=== PATIENT | male | born 1935 | race Caucasian/White ===

== ENCOUNTER 2022-08-28 14:36 | Inpatient (IN) | payer MEDICARE, OTHER ==
[~2022-08-28 14:36] MED LIST: Iopamidol 370 76% 100 ML VIAL ONE
[2022-08-28] MEDS ORDERED: Ondansetron PF 4 MG/2 ML Vial ONE (14:52)
[2022-08-28] MEDS ORDERED: Morphine 4 MG/ML VIAL ONE (14:52)
[2022-08-28 15:17] LABS: #Monocytes 0.9 10x3/uL (0.0-1.1); #Neutrophils 6.1 10x3/uL (1.5-8.4); %Basophils 0.3 % (0.0-2.0); %Monocytes 11.3 % (0.0-10.0); Hemoglobin 12.2 g/dL (13.5-17.5); Mean Corpuscular HGB CONC 36.6 g/dL (32.0-36.0); Mean Corpuscular Hemoglobin 33.5 pg (27.0-33.0); Mean Corpuscular Volume 91.5 fl (81.2-95.1); Mean Platelet Volume 8.8 fl (7.4-10.4); Platelet Count 142 10x3/uL (150-450); RBC Distribution Width 17.4 % (11.5-14.5); Red Blood Cell (RBC) Count 3.64 10x6/uL (4.32-5.72); White Blood Cell (WBC) Count 7.6 10x3/uL (3.5-10.5)
[2022-08-28] MEDS ORDERED: NOREPINEPHRINE 8 MG/250 ML-D5W 250 ML ONE (15:19)
[2022-08-28 15:27] LABS: ALT (SGPT) 25 U/L (8-55); AST (SGOT) 29 U/L (5-34); Albumin 3.1 g/dL (3.4-4.8); Alkaline Phosphatase 41 U/L (40-110); Anion Gap 14 mmol/L (10-20); BUN (Urea Nitrogen) 31 mg/dL (8.4-25.7); Bilirubin, Total 1.2 mg/dL (0.2-1.2); Calc. Creatinine Clearance 0 mL/min (70-130); Calcium 8.1 mg/dL (7.8-10.44); Carbon Dioxide 20 mmol/L (23-31); Chloride 99 mmol/L (98-107); Estimated GFR 42; Globulin 1.9 g/dL (2.4-3.5); Glucose 135 mg/dL (83-110); Lipase 14 U/L (8-78); Potassium 3.2 mmol/L (3.5-5.1); Sodium 130 mmol/L (136-145)
[2022-08-28 16:09] LABS: CKMB 9.6 ng/mL (0-6.6)
[2022-08-28] MEDS ORDERED: Aspirin Chewable 81 MG TAB ONE (17:41)
[2022-08-28] MEDS ORDERED: cefTRIAXone\\ROCEPHIN 2 GM VIAL ONE (17:41)
[2022-08-28 17:56] LABS: SARS-CoV-2 NAA Rapid Test Not Detected (NotDetected)
[2022-08-28] MEDS ORDERED: Acetaminophen 325 MG TAB PO PRN (17:56)
[2022-08-28] MEDS ORDERED: NOREPINEPHRINE 8 MG/250 ML-D5W 250 ML IVPB PRN (17:56)
[2022-08-28] MEDS ORDERED: Potassium Chloride 20 MEQ TAB PO SCH (18:30)
[2022-08-28 18:45] LABS: Troponin I 0.247 ng/mL (< 0.028)
[2022-08-28] MEDS: Lactated Ringer's 1,000 ML IV SCH (19:56)
[2022-08-28] MEDS: Gabapentin 300 MG CAP PO SCH ×2 (20:59→23:56)
[2022-08-28] MEDS: Aspirin Chewable 81 MG TAB PO SCH (21:00)
[2022-08-28] MEDS ORDERED: Famotidine/PF 20 mg/2ml Vial SLOW IVP SCH (21:00)
[2022-08-28] MEDS: Atorvastatin Calcium 40 MG TAB PO SCH (21:00)
[2022-08-28] MEDS: Donepezil HCl 5 MG TAB PO SCH (21:01)
[2022-08-28] MEDS: metroNIDAZOLE 500 MG in Premix Bag 1 BAG IVPB SCH (21:02)
[2022-08-28 22:45] LABS: Bilirubin Neg (Negative); Blood, Urine 10 (Negative); CAUTI Indications for Culture Immunosuppressed; Clarity Slightly Cloudy (Clear); Glucose, Urine (Dipstick) Normal (Negative); Ketone, Urine 50 mg/dL (Negative); Leukocyte 100 (Negative); Nitrite Negative (Negative); Protein, Urine (Dipstick) 30 mg/dl (Neg-Trace); Urobilinogen Normal mg/dL (Less than 2)
[2022-08-28 22:56] LABS: Urine Culture Reflex Yes Yes
[2022-08-28 22:58] LABS: RBC/HPF 0-3 HPF (0-3)
[2022-08-28 22:59] LABS: Bacteria/HPF 1+ HPF (None Seen); Squamous Epithelial 0-3 HPF (0-3)
[2022-08-28 23:08] LABS: Troponin I 0.248 ng/mL (< 0.028)
[2022-08-29] MEDS: metroNIDAZOLE 500 MG in Premix Bag 1 BAG IVPB SCH ×3 (03:12→19:52)
[2022-08-29 03:51] LABS: Anion Gap 11 mmol/L (10-20); BUN (Urea Nitrogen) 27 mg/dL (8.4-25.7); Calc. Creatinine Clearance 63 mL/min (70-130); Calcium 7.7 mg/dL (7.8-10.44); Carbon Dioxide 22 mmol/L (23-31); Chloride 102 mmol/L (98-107); Estimated GFR 58; Glucose 129 mg/dL (83-110); Potassium 3.2 mmol/L (3.5-5.1); Sodium 132 mmol/L (136-145)
[2022-08-29 03:57] LABS: Hemoglobin 11.5 g/dL (13.5-17.5); Mean Corpuscular HGB CONC 36.6 g/dL (32.0-36.0); Mean Corpuscular Hemoglobin 33.8 pg (27.0-33.0); Mean Corpuscular Volume 92.4 fl (81.2-95.1); Mean Platelet Volume 8.7 fl (7.4-10.4); Platelet Count 148 10x3/uL (150-450); White Blood Cell (WBC) Count 6.5 10x3/uL (3.5-10.5)
[2022-08-29 03:59] LABS: MDiff Complete? YES
[2022-08-29 04:50] LABS: Band 18 % (5-11); Lymphocytes 11 % (21-51); Monocytes 16 % (0-10); Neutrophil 54 % (42-75)
[2022-08-29 04:51] LABS: Platelet Morphology Comment Appears Decreased; RBC Morphology Normal
[2022-08-29] MEDS ORDERED: Potassium Chloride 20 MEQ in Premix Bag 1 BAG IVPB SCH (05:00)
[2022-08-29] MEDS: Lactated Ringer's 1,000 ML IV SCH ×2 (06:36→19:55)
[2022-08-29] MEDS ORDERED: Furosemide 40 MG TAB PO SCH (07:30)
[2022-08-29] MEDS: Gabapentin 300 MG CAP PO SCH ×5 (07:43→23:31)
[2022-08-29] MEDS: Enoxaparin Sodium 40 MG/0.4 ML SYRINGE SC SCH (07:44)
[2022-08-29] MEDS: Levothyroxine Sodium 75 MCG TAB PO SCH (07:44)
[2022-08-29] MEDS: Doxazosin 2 MG TAB PO SCH (07:45)
[2022-08-29] MEDS: LACTINEX 1 TAB PO SCH (07:45)
[2022-08-29] MEDS ORDERED: Lisinopril 10 MG TAB PO SCH (09:00)
[2022-08-29 10:06] LABS: Hemoglobin 11.9 g/dL (13.5-17.5); Mean Corpuscular HGB CONC 36.4 g/dL (32.0-36.0); Mean Corpuscular Hemoglobin 33.5 pg (27.0-33.0); Mean Corpuscular Volume 92.1 fl (81.2-95.1); Mean Platelet Volume 9.3 fl (7.4-10.4); Platelet Count 166 10x3/uL (150-450); RBC Distribution Width 18.1 % (11.5-14.5); Red Blood Cell (RBC) Count 3.55 10x6/uL (4.32-5.72); White Blood Cell (WBC) Count 5.7 10x3/uL (3.5-10.5)
[2022-08-29 10:15] LABS: MDiff Complete? YES
[2022-08-29] MEDS: Mag-Al Plus 1200 MG/1200 MG/120 MG/30 ML UDCUP PO PRN (11:07)
[2022-08-29 12:43] LABS: Eosinophils 2 % (0-10); Monocytes 14 % (0-10)
[2022-08-29 12:45] LABS: Lymphocytes 13 % (21-51); Neutrophil 71 % (42-75)
[2022-08-29 12:46] LABS: Platelet Morphology Comment Appears Adequate
[2022-08-29] MEDS: HYDROcodone/Acetaminophen 5/325 mg Tablet PO PRN ×2 (15:57→23:30)
[2022-08-29] MEDS: cefTRIAXone\\ROCEPHIN 2 GM in Sodium Chloride 0.9% 100 ML IVPB SCH (16:44)
[2022-08-29 17:12] LABS: Campy jejuni + coli by PCR Negative (Negative); STEC Shiga Toxin 1+2 Negative (Negative); Salmonella spp. by PCR Negative (Negative); Shigella spp + EIEC by PCR Negative (Negative)
[2022-08-29] MEDS: Aspirin Chewable 81 MG TAB PO SCH (20:06)
[2022-08-29] MEDS: Donepezil HCl 5 MG TAB PO SCH (20:06)
[2022-08-29] MEDS: Atorvastatin Calcium 40 MG TAB PO SCH (20:06)
[2022-08-30] MEDS: metroNIDAZOLE 500 MG in Premix Bag 1 BAG IVPB SCH ×3 (03:26→20:39)
[2022-08-30] MEDS: Levothyroxine Sodium 75 MCG TAB PO SCH (07:59)
[2022-08-30] MEDS: Enoxaparin Sodium 40 MG/0.4 ML SYRINGE SC SCH (07:59)
[2022-08-30] MEDS: Doxazosin 2 MG TAB PO SCH (08:02)
[2022-08-30] MEDS: LACTINEX 1 TAB PO SCH (08:02)
[2022-08-30] MEDS: Gabapentin 300 MG CAP PO SCH ×4 (08:03→20:41)
[2022-08-30] MEDS ORDERED: Potassium Chloride 20 MEQ TAB PO SCH (08:45)
[2022-08-30] MEDS: HYDROcodone/Acetaminophen 5/325 mg Tablet PO PRN ×3 (09:55→20:38)
[2022-08-30 10:05] LABS: #Eosinphils 0.2 10x3/uL (0.0-0.5); #Monocytes 0.7 10x3/uL (0.0-1.1); #Neutrophils 3.5 10x3/uL (1.5-8.4); %Basophils 0.6 % (0.0-2.0); %Eosinophils 3.4 % (0.0-6.0); %Lymphocytes 12.7 % (18.0-47.0); %Monocytes 13.1 % (0.0-10.0); %Neutrophils 69.8 % (40.0-75.0); Hemoglobin 11.3 g/dL (13.5-17.5); Mean Corpuscular HGB CONC 36.3 g/dL (32.0-36.0); Mean Corpuscular Hemoglobin 33.8 pg (27.0-33.0); Mean Corpuscular Volume 93.1 fl (81.2-95.1); Mean Platelet Volume 8.6 fl (7.4-10.4); Platelet Count 146 10x3/uL (150-450); RBC Distribution Width 18.6 % (11.5-14.5); Red Blood Cell (RBC) Count 3.34 10x6/uL (4.32-5.72)
[2022-08-30 10:20] LABS: Anion Gap 10 mmol/L (10-20); BUN (Urea Nitrogen) 17 mg/dL (8.4-25.7); Calc. Creatinine Clearance 92 mL/min (70-130); Calcium 7.8 mg/dL (7.8-10.44); Carbon Dioxide 23 mmol/L (23-31); Chloride 104 mmol/L (98-107); Estimated GFR 84; Glucose 118 mg/dL (83-110); Magnesium 1.8 mg/dL (1.6-2.6); Phosphorus 1.6 mg/dL (2.3-4.7); Potassium 3.2 mmol/L (3.5-5.1); Sodium 134 mmol/L (136-145)
[2022-08-30] MEDS: Lactated Ringer's 1,000 ML IV SCH (12:18)
[2022-08-30] MEDS ORDERED: Potassium Phosphate 15 MMOL in Sodium Chloride 0.9% 100 ML IVPB SCH (13:00)
[2022-08-30] MEDS: cefTRIAXone\\ROCEPHIN 2 GM in Sodium Chloride 0.9% 100 ML IVPB SCH (16:02)
[2022-08-30] MEDS: Atorvastatin Calcium 40 MG TAB PO SCH (20:40)
[2022-08-30] MEDS: Donepezil HCl 5 MG TAB PO SCH (20:41)
[2022-08-30] MEDS: Aspirin Chewable 81 MG TAB PO SCH (20:41)
[2022-08-31] MEDS: Lactated Ringer's 1,000 ML IV SCH ×2 (01:36→06:18)
[2022-08-31] MEDS: Gabapentin 300 MG CAP PO SCH ×5 (01:37→20:53)
[2022-08-31] MEDS: metroNIDAZOLE 500 MG in Premix Bag 1 BAG IVPB SCH ×3 (03:29→20:52)
[2022-08-31 06:11] LABS: Anion Gap 10 mmol/L (10-20); BUN (Urea Nitrogen) 11 mg/dL (8.4-25.7); Calc. Creatinine Clearance 105 mL/min (70-130); Calcium 7.7 mg/dL (7.8-10.44); Carbon Dioxide 22 mmol/L (23-31); Chloride 105 mmol/L (98-107); Estimated GFR 87; Glucose 102 mg/dL (83-110); Potassium 3.4 mmol/L (3.5-5.1); Sodium 134 mmol/L (136-145)
[2022-08-31] MEDS ORDERED: Potassium Chloride 20 MEQ TAB PO SCH (08:45)
[2022-08-31] MEDS ORDERED: Potassium Phosphate 15 MMOL in Sodium Chloride 0.9% 100 ML IVPB SCH (09:30)
[2022-08-31] MEDS: Enoxaparin Sodium 40 MG/0.4 ML SYRINGE SC SCH (09:45)
[2022-08-31] MEDS: Levothyroxine Sodium 75 MCG TAB PO SCH (09:45)
[2022-08-31] MEDS: Loperamide HCl 1 MG/7.5 ML UDCUP PO PRN (09:45)
[2022-08-31] MEDS: LACTINEX 1 TAB PO SCH (09:46)
[2022-08-31] MEDS: Doxazosin 2 MG TAB PO SCH (09:49)
[2022-08-31] MEDS: HYDROcodone/Acetaminophen 5/325 mg Tablet PO PRN ×3 (11:10→20:54)
[2022-08-31] MEDS ORDERED: Cholestyramine/Aspartame 4 gm Packet PO SCH (12:30)
[2022-08-31] MEDS: cefTRIAXone\\ROCEPHIN 2 GM in Sodium Chloride 0.9% 100 ML IVPB SCH (17:30)
[2022-08-31] MEDS: Lisinopril 20 MG TAB PO SCH (20:53)
[2022-08-31] MEDS: Donepezil HCl 5 MG TAB PO SCH (20:54)
[2022-08-31] MEDS: Aspirin Chewable 81 MG TAB PO SCH (20:54)
[2022-08-31] MEDS: Atorvastatin Calcium 40 MG TAB PO SCH (20:55)
[2022-09-01] MEDS: Gabapentin 300 MG CAP PO SCH ×5 (00:58→22:31)
[2022-09-01] MEDS: Cholestyramine/Aspartame 4 gm Packet PO SCH ×3 (00:58→23:32)
[2022-09-01] MEDS: metroNIDAZOLE 500 MG in Premix Bag 1 BAG IVPB SCH ×3 (03:31→19:33)
[2022-09-01] MEDS: Enoxaparin Sodium 40 MG/0.4 ML SYRINGE SC SCH (08:05)
[2022-09-01] MEDS: Lisinopril 20 MG TAB PO SCH ×2 (08:05→22:32)
[2022-09-01] MEDS: LACTINEX 1 TAB PO SCH (08:06)
[2022-09-01] MEDS: Levothyroxine Sodium 75 MCG TAB PO SCH (08:07)
[2022-09-01] MEDS: Doxazosin 2 MG TAB PO SCH (08:07)
[2022-09-01] MEDS: Furosemide 40 MG TAB PO SCH (08:07)
[2022-09-01] MEDS ORDERED: Iopamidol 300 61% 100 ML VIAL FS ONE (10:07)
[2022-09-01] MEDS: HYDROcodone/Acetaminophen 5/325 mg Tablet PO PRN (10:46)
[2022-09-01] MEDS: cefTRIAXone\\ROCEPHIN 2 GM in Sodium Chloride 0.9% 100 ML IVPB SCH (16:54)
[2022-09-01] MEDS: Mag-Al Plus 1200 MG/1200 MG/120 MG/30 ML UDCUP PO PRN (20:58)
[2022-09-01] MEDS: Aspirin Chewable 81 MG TAB PO SCH (22:32)
[2022-09-01] MEDS: Donepezil HCl 5 MG TAB PO SCH (22:32)
[2022-09-01] MEDS: Atorvastatin Calcium 40 MG TAB PO SCH (22:32)
[2022-09-02] MEDS: Gabapentin 300 MG CAP PO SCH ×5 (00:54→20:00)
[2022-09-02] MEDS: metroNIDAZOLE 500 MG in Premix Bag 1 BAG IVPB SCH ×3 (02:13→18:16)
[2022-09-02] MEDS: Loperamide HCl 1 MG/7.5 ML UDCUP PO PRN (03:22)
[2022-09-02 06:59] LABS: Hemoglobin 11.2 g/dL (13.5-17.5); Mean Corpuscular HGB CONC 35.6 g/dL (32.0-36.0); Mean Corpuscular Hemoglobin 33.6 pg (27.0-33.0); Mean Corpuscular Volume 94.6 fl (81.2-95.1); Mean Platelet Volume 8.9 fl (7.4-10.4); Platelet Count 169 10x3/uL (150-450); RBC Distribution Width 20.1 % (11.5-14.5); Red Blood Cell (RBC) Count 3.33 10x6/uL (4.32-5.72); White Blood Cell (WBC) Count 4.6 10x3/uL (3.5-10.5)
[2022-09-02 07:10] LABS: Anion Gap 9 mmol/L (10-20); BUN (Urea Nitrogen) 8 mg/dL (8.4-25.7); Calc. Creatinine Clearance 103 mL/min (70-130); Calcium 7.9 mg/dL (7.8-10.44); Carbon Dioxide 23 mmol/L (23-31); Chloride 106 mmol/L (98-107); Estimated GFR 85; Glucose 112 mg/dL (83-110); Potassium 3.3 mmol/L (3.5-5.1); Sodium 135 mmol/L (136-145)
[2022-09-02] MEDS ORDERED: Electrolyte Replacement Protocol 1 EACH FS SCH (08:00)
[2022-09-02] MEDS: Enoxaparin Sodium 40 MG/0.4 ML SYRINGE SC SCH (10:55)
[2022-09-02] MEDS: Levothyroxine Sodium 75 MCG TAB PO SCH (10:55)
[2022-09-02] MEDS: Lisinopril 20 MG TAB PO SCH (10:55)
[2022-09-02] MEDS: LACTINEX 1 TAB PO SCH (10:55)
[2022-09-02] MEDS: Furosemide 40 MG TAB PO SCH (10:55)
[2022-09-02] MEDS: HYDROcodone/Acetaminophen 5/325 mg Tablet PO PRN (11:03)
[2022-09-02] MEDS: Cholestyramine/Aspartame 4 gm Packet PO SCH (11:05)
[2022-09-02] MEDS: Doxazosin 2 MG TAB PO SCH (11:05)
[2022-09-02] MEDS: PHOS-NAK 1 PKT PACK PO SCH ×2 (11:14→17:42)
[2022-09-02] MEDS ORDERED: Magnesium 2 GM/50 ML(in water) 2 GM in Premix Bag 1 BAG IVPB SCH (12:00)
[2022-09-02] MEDS ORDERED: Potassium Chloride 20 MEQ TAB PO SCH (12:00)
[2022-09-02] MEDS ORDERED: Miconazole Nitrate Powder 2% 45 gm TOP SCH (13:30)
[2022-09-02 17:07] LABS: Potassium 2.5 mmol/L (3.5-5.1)
[2022-09-02] MEDS: Potassium Bicarbonate/Cit Ac 20 MEQ TAB PO SCH (17:38)
[2022-09-02] MEDS ORDERED: Potassium Chloride 20 MEQ TAB PO ONE (18:10)
[2022-09-02] MEDS ORDERED: Potassium Chloride 20 MEQ in Premix Bag 1 BAG IVPB SCH (18:15)
[2022-09-02] MEDS: cefTRIAXone\\ROCEPHIN 2 GM in Sodium Chloride 0.9% 100 ML IVPB SCH (18:16)
[2022-09-03] MEDS: Atorvastatin Calcium 40 MG TAB PO SCH ×2 (00:19→22:03)
[2022-09-03] MEDS: Lisinopril 20 MG TAB PO SCH ×3 (00:19→22:04)
[2022-09-03] MEDS: Donepezil HCl 5 MG TAB PO SCH ×2 (00:20→22:04)
[2022-09-03] MEDS: Aspirin Chewable 81 MG TAB PO SCH ×2 (00:20→22:04)
[2022-09-03] MEDS: Gabapentin 300 MG CAP PO SCH ×5 (00:20→22:03)
[2022-09-03] MEDS: Miconazole Nitrate Powder 2% 45 gm TOP SCH ×3 (00:27→21:00)
[2022-09-03] MEDS: Cholestyramine/Aspartame 4 gm Packet PO SCH ×3 (00:28→22:02)
[2022-09-03] MEDS: Potassium Bicarbonate/Cit Ac 20 MEQ TAB PO SCH (00:45)
[2022-09-03] MEDS ORDERED: Potassium Bicarbonate/Cit Ac 20 MEQ TAB PO SCH (00:45)
[2022-09-03] MEDS: HYDROcodone/Acetaminophen 5/325 mg Tablet PO PRN ×3 (00:46→22:08)
[2022-09-03] MEDS: metroNIDAZOLE 500 MG in Premix Bag 1 BAG IVPB SCH ×3 (03:28→18:38)
[2022-09-03 06:54] LABS: Hemoglobin 12.2 g/dL (13.5-17.5); Mean Corpuscular HGB CONC 35.1 g/dL (32.0-36.0); Mean Corpuscular Hemoglobin 34.1 pg (27.0-33.0); Mean Corpuscular Volume 97.2 fl (81.2-95.1); Platelet Count 202 10x3/uL (150-450); RBC Distribution Width 20.8 % (11.5-14.5); Red Blood Cell (RBC) Count 3.58 10x6/uL (4.32-5.72); White Blood Cell (WBC) Count 4.8 10x3/uL (3.5-10.5)
[2022-09-03 06:58] LABS: ALT (SGPT) 46 U/L (8-55); AST (SGOT) 50 U/L (5-34); Albumin 2.6 g/dL (3.4-4.8); Alkaline Phosphatase 43 U/L (40-110); Anion Gap 11 mmol/L (10-20); BUN (Urea Nitrogen) 8 mg/dL (8.4-25.7); Bilirubin, Total 0.5 mg/dL (0.2-1.2); Calc. Creatinine Clearance 98 mL/min (70-130); Calcium 8.1 mg/dL (7.8-10.44); Carbon Dioxide 25 mmol/L (23-31); Chloride 107 mmol/L (98-107); Estimated GFR 84; Globulin 2.2 g/dL (2.4-3.5); Glucose 109 mg/dL (83-110); Magnesium 2.1 mg/dL (1.6-2.6); Phosphorus 2.2 mg/dL (2.3-4.7); Protein, Total 4.8 g/dL (5.8-8.1); Sodium 139 mmol/L (136-145)
[2022-09-03 08:23] LABS: MDiff Complete? YES
[2022-09-03 08:32] LABS: Band 8 % (5-11); Eosinophils 6 % (0-10); Lymphocytes 29 % (21-51); Monocytes 19 % (0-10); Neutrophil 35 % (42-75); Reactive Lymphocytes 3 % (0-10)
[2022-09-03 08:34] LABS: Anisocytosis SLIGHT = 6-15 cells (100X) (0-5/hpf); Macrocytosis SLIGHT = 6-15 cells (100X) (0-5/hpf); Ovalocytes SLIGHT = 2-5 cells (100X) (0-1/hpf)
[2022-09-03 08:35] LABS: Burr Cells SLIGHT = 2-5 cells (100X) (0-1/hpf); Platelet Morphology Comment Appears Adequate
[2022-09-03] MEDS ORDERED: Terbinafine 250 MG TAB PO SCH ×2 (09:00→12:00)
[2022-09-03] MEDS: Furosemide 40 MG TAB PO SCH (09:06)
[2022-09-03] MEDS: LACTINEX 1 TAB PO SCH (09:06)
[2022-09-03] MEDS: Levothyroxine Sodium 75 MCG TAB PO SCH (09:06)
[2022-09-03] MEDS: Doxazosin 2 MG TAB PO SCH (09:07)
[2022-09-03] MEDS: Enoxaparin Sodium 40 MG/0.4 ML SYRINGE SC SCH (09:07)
[2022-09-03] MEDS: cefTRIAXone\\ROCEPHIN 2 GM in Sodium Chloride 0.9% 100 ML IVPB SCH (17:36)
[2022-09-04] MEDS: Gabapentin 300 MG CAP PO SCH ×6 (03:12→20:52)
[2022-09-04] MEDS: metroNIDAZOLE 500 MG in Premix Bag 1 BAG IVPB SCH ×3 (03:12→17:53)
[2022-09-04 05:54] LABS: ALT (SGPT) 40 U/L (8-55); AST (SGOT) 34 U/L (5-34); Albumin 2.4 g/dL (3.4-4.8); Alkaline Phosphatase 39 U/L (40-110); Anion Gap 12 mmol/L (10-20); BUN (Urea Nitrogen) 10 mg/dL (8.4-25.7); Bilirubin, Total 0.5 mg/dL (0.2-1.2); Calc. Creatinine Clearance 95 mL/min (70-130); Calcium 8.1 mg/dL (7.8-10.44); Carbon Dioxide 23 mmol/L (23-31); Chloride 108 mmol/L (98-107); Estimated GFR 83; Glucose 121 mg/dL (83-110); Potassium 3.7 mmol/L (3.5-5.1); Protein, Total 4.4 g/dL (5.8-8.1); Sodium 139 mmol/L (136-145)
[2022-09-04 06:15] LABS: #Eosinphils 0.3 10x3/uL (0.0-0.5); #Neutrophils 2.7 10x3/uL (1.5-8.4); %Basophils 0.6 % (0.0-2.0); %Eosinophils 6.7 % (0.0-6.0); %Lymphocytes 19.3 % (18.0-47.0); %Monocytes 18.9 % (0.0-10.0); %Neutrophils 53.9 % (40.0-75.0); Hemoglobin 11.6 g/dL (13.5-17.5); Mean Corpuscular HGB CONC 34.8 g/dL (32.0-36.0); Mean Corpuscular Hemoglobin 33.7 pg (27.0-33.0); Mean Corpuscular Volume 96.8 fl (81.2-95.1); Mean Platelet Volume 8.7 fl (7.4-10.4); Platelet Count 186 10x3/uL (150-450); Red Blood Cell (RBC) Count 3.44 10x6/uL (4.32-5.72); White Blood Cell (WBC) Count 5.1 10x3/uL (3.5-10.5)
[2022-09-04 06:21] LABS: MDiff Complete? YES
[2022-09-04 06:57] LABS: Band 7 % (5-11); Eosinophils 5 % (0-10); Lymphocytes 11 % (21-51); Monocytes 27 % (0-10); Neutrophil 49 % (42-75); Reactive Lymphocytes 1 % (0-10)
[2022-09-04 06:59] LABS: Anisocytosis SLIGHT = 6-15 cells (100X) (0-5/hpf); Macrocytosis SLIGHT = 6-15 cells (100X) (0-5/hpf); Platelet Morphology Comment Appears Adequate
[2022-09-04] MEDS: Cholestyramine/Aspartame 4 gm Packet PO SCH (08:40)
[2022-09-04] MEDS: Doxazosin 2 MG TAB PO SCH (08:42)
[2022-09-04] MEDS: Terbinafine 250 MG TAB PO SCH (08:42)
[2022-09-04] MEDS: Enoxaparin Sodium 40 MG/0.4 ML SYRINGE SC SCH (08:42)
[2022-09-04] MEDS: LACTINEX 1 TAB PO SCH (08:43)
[2022-09-04] MEDS: Furosemide 40 MG TAB PO SCH (08:43)
[2022-09-04] MEDS: Levothyroxine Sodium 75 MCG TAB PO SCH (08:43)
[2022-09-04] MEDS: Lisinopril 20 MG TAB PO SCH ×2 (08:43→21:00)
[2022-09-04] MEDS: Miconazole Nitrate Powder 2% 45 gm TOP SCH ×2 (08:44→22:00)
[2022-09-04] MEDS: cefTRIAXone\\ROCEPHIN 2 GM in Sodium Chloride 0.9% 100 ML IVPB SCH (16:30)
[2022-09-04] MEDS: HYDROcodone/Acetaminophen 5/325 mg Tablet PO PRN (18:13)
[2022-09-04] MEDS: Donepezil HCl 5 MG TAB PO SCH (20:54)
[2022-09-04] MEDS: Atorvastatin Calcium 40 MG TAB PO SCH (20:54)
[2022-09-04] MEDS: Aspirin Chewable 81 MG TAB PO SCH (20:59)
[2022-09-05 04:56] LABS: #Eosinphils 0.3 10x3/uL (0.0-0.5); #Monocytes 0.8 10x3/uL (0.0-1.1); #Neutrophils 3.3 10x3/uL (1.5-8.4); %Basophils 0.6 % (0.0-2.0); %Eosinophils 6.3 % (0.0-6.0); %Lymphocytes 13.3 % (18.0-47.0); %Monocytes 15.8 % (0.0-10.0); %Neutrophils 63.4 % (40.0-75.0); Hemoglobin 11.7 g/dL (13.5-17.5); Mean Corpuscular Hemoglobin 33.6 pg (27.0-33.0); Mean Platelet Volume 8.6 fl (7.4-10.4); Platelet Count 178 10x3/uL (150-450); RBC Distribution Width 21.2 % (11.5-14.5); Red Blood Cell (RBC) Count 3.48 10x6/uL (4.32-5.72); White Blood Cell (WBC) Count 5.1 10x3/uL (3.5-10.5)
[2022-09-05 04:57] LABS: MDiff Complete? YES
[2022-09-05 05:06] LABS: ALT (SGPT) 34 U/L (8-55); AST (SGOT) 30 U/L (5-34); Albumin 2.4 g/dL (3.4-4.8); Alkaline Phosphatase 37 U/L (40-110); Anion Gap 12 mmol/L (10-20); BUN (Urea Nitrogen) 11 mg/dL (8.4-25.7); Bilirubin, Total 0.6 mg/dL (0.2-1.2); Calc. Creatinine Clearance 99 mL/min (70-130); Calcium 8.1 mg/dL (7.8-10.44); Carbon Dioxide 21 mmol/L (23-31); Chloride 108 mmol/L (98-107); Estimated GFR 84; Globulin 2.2 g/dL (2.4-3.5); Glucose 111 mg/dL (83-110); Potassium 3.8 mmol/L (3.5-5.1); Protein, Total 4.6 g/dL (5.8-8.1); Sodium 137 mmol/L (136-145)
[2022-09-05] MEDS: Gabapentin 300 MG CAP PO SCH ×5 (05:42→20:12)
[2022-09-05 06:17] LABS: Band 2 % (5-11); Eosinophils 4 % (0-10); Lymphocytes 12 % (21-51); Monocytes 14 % (0-10); Neutrophil 68 % (42-75); Nucleated RBC 1 % (0)
[2022-09-05 06:18] LABS: Platelet Morphology Comment Appears Adequate; Polychromasia SLIGHT = 2-3 cells (100X) (0-2/hpf)
[2022-09-05] MEDS: Enoxaparin Sodium 40 MG/0.4 ML SYRINGE SC SCH ×2 (09:03→09:08)
[2022-09-05] MEDS: Cholestyramine/Aspartame 4 gm Packet PO SCH (09:03)
[2022-09-05] MEDS: Furosemide 40 MG TAB PO SCH (09:04)
[2022-09-05] MEDS: LACTINEX 1 TAB PO SCH (09:04)
[2022-09-05] MEDS: Lisinopril 20 MG TAB PO SCH ×2 (09:04→20:13)
[2022-09-05] MEDS: Ketoconazole 2% Cream 15 gm Tube TOP SCH (09:04)
[2022-09-05] MEDS: Levothyroxine Sodium 75 MCG TAB PO SCH (09:04)
[2022-09-05] MEDS: HYDROcodone/Acetaminophen 5/325 mg Tablet PO PRN (09:04)
[2022-09-05] MEDS: Doxazosin 2 MG TAB PO SCH (09:08)
[2022-09-05] MEDS: Miconazole Nitrate Powder 2% 45 gm TOP SCH ×2 (10:21→20:17)
[2022-09-05] MEDS: Terbinafine 250 MG TAB PO SCH (10:21)
[2022-09-05] MEDS: Mag-Al Plus 1200 MG/1200 MG/120 MG/30 ML UDCUP PO PRN (19:21)
[2022-09-05] MEDS: Donepezil HCl 5 MG TAB PO SCH (20:12)
[2022-09-05] MEDS: Atorvastatin Calcium 40 MG TAB PO SCH (20:13)
[2022-09-05] MEDS: Aspirin Chewable 81 MG TAB PO SCH (20:13)
[2022-09-06] MEDS: Gabapentin 300 MG CAP PO SCH ×5 (01:23→20:22)
[2022-09-06] MEDS: Enoxaparin Sodium 40 MG/0.4 ML SYRINGE SC SCH (09:06)
[2022-09-06] MEDS: Cholestyramine/Aspartame 4 gm Packet PO SCH (09:06)
[2022-09-06] MEDS: Furosemide 40 MG TAB PO SCH (09:06)
[2022-09-06] MEDS: Ketoconazole 2% Cream 15 gm Tube TOP SCH (09:06)
[2022-09-06] MEDS: Levothyroxine Sodium 75 MCG TAB PO SCH (09:07)
[2022-09-06] MEDS: LACTINEX 1 TAB PO SCH (09:07)
[2022-09-06] MEDS: Lisinopril 20 MG TAB PO SCH ×2 (09:07→20:29)
[2022-09-06] MEDS: Miconazole Nitrate Powder 2% 45 gm TOP SCH ×2 (09:09→20:24)
[2022-09-06] MEDS: Doxazosin 2 MG TAB PO SCH (09:12)
[2022-09-06] MEDS: Terbinafine 250 MG TAB PO SCH (09:12)
[2022-09-06] MEDS ORDERED: guaiFENesin ER 600 MG TAB PO SCH (11:00)
[2022-09-06 14:36] LABS: #Eosinphils 0.3 10x3/uL (0.0-0.5); #Monocytes 0.8 10x3/uL (0.0-1.1); #Neutrophils 6.4 10x3/uL (1.5-8.4); %Basophils 0.2 % (0.0-2.0); %Eosinophils 3.5 % (0.0-6.0); %Lymphocytes 7.2 % (18.0-47.0); %Monocytes 10.1 % (0.0-10.0); %Neutrophils 78.4 % (40.0-75.0); Hemoglobin 11.5 g/dL (13.5-17.5); Mean Corpuscular HGB CONC 35.1 g/dL (32.0-36.0); Mean Corpuscular Hemoglobin 33.7 pg (27.0-33.0); Mean Corpuscular Volume 96.2 fl (81.2-95.1); Mean Platelet Volume 8.6 fl (7.4-10.4); Platelet Count 183 10x3/uL (150-450); RBC Distribution Width 20.9 % (11.5-14.5); Red Blood Cell (RBC) Count 3.41 10x6/uL (4.32-5.72); White Blood Cell (WBC) Count 8.2 10x3/uL (3.5-10.5)
[2022-09-06 14:52] LABS: Anion Gap 11 mmol/L (10-20); BUN (Urea Nitrogen) 10 mg/dL (8.4-25.7); Calc. Creatinine Clearance 0 mL/min (70-130); Calcium 8.1 mg/dL (7.8-10.44); Carbon Dioxide 22 mmol/L (23-31); Chloride 106 mmol/L (98-107); Estimated GFR 84; Glucose 137 mg/dL (83-110); Potassium 3.4 mmol/L (3.5-5.1); Sodium 136 mmol/L (136-145)
[2022-09-06] MEDS ORDERED: Potassium Chloride 20 MEQ TAB PO SCH (20:00)
[2022-09-06] MEDS: guaiFENesin ER 600 MG TAB PO SCH (20:22)
[2022-09-06] MEDS: Donepezil HCl 5 MG TAB PO SCH (20:22)
[2022-09-06] MEDS: Atorvastatin Calcium 40 MG TAB PO SCH (20:23)
[2022-09-06] MEDS: Aspirin Chewable 81 MG TAB PO SCH (20:23)
[2022-09-07] MEDS: Gabapentin 300 MG CAP PO SCH ×3 (01:03→14:21)
[2022-09-07 05:13] LABS: Potassium 3.7 mmol/L (3.5-5.1)
[2022-09-07] MEDS ORDERED: Fluticasone Propionate Nasal Spray 16 gm Bottle NASAL SCH (09:00)
[2022-09-07] MEDS: Furosemide 40 MG TAB PO SCH (09:34)
[2022-09-07] MEDS: guaiFENesin ER 600 MG TAB PO SCH (09:34)
[2022-09-07] MEDS: Lisinopril 20 MG TAB PO SCH (09:35)
[2022-09-07] MEDS: Ketoconazole 2% Cream 15 gm Tube TOP SCH (09:35)
[2022-09-07] MEDS: LACTINEX 1 TAB PO SCH ×2 (09:35→09:36)
[2022-09-07] MEDS: Doxazosin 2 MG TAB PO SCH (09:36)
[2022-09-07] MEDS: Levothyroxine Sodium 75 MCG TAB PO SCH (09:36)
[2022-09-07] MEDS: Terbinafine 250 MG TAB PO SCH (11:39)
[2022-09-07] MEDS: Miconazole Nitrate Powder 2% 45 gm TOP SCH (11:39)
[2022-09-07] MEDS: Cholestyramine/Aspartame 4 gm Packet PO SCH (11:40)
[2022-09-07 14:31] VITALS: BP 126/70; TEMP 97.6
== END 2022-09-07 16:10 | disposition home or self-care (01) | DRG 871 ==
LOC: CSHERS 14:36 → SUATTDRO 14:36 → CSHIMCU 17:59 → CSHTELE 08-30 18:18
PROVIDERS: ADMIT Internal Medicine; ATTEND Internal Medicine
PROC: 05HY33Z Insertion of Infusion Device into Upper Vein, Percutaneous Approach (ICD-10-PCS; principal; 2022-08-28)
PROC: 3E03329 Introduction of Other Anti-infective into Peripheral Vein, Percutaneous Approach (ICD-10-PCS; 2022-08-28)
PROC: 3E043XZ Introduction of Vasopressor into Central Vein, Percutaneous Approach (ICD-10-PCS; 2022-08-28)
DX: A41.9 Sepsis, unspecified organism (principal); I21.A1 Myocardial infarction type 2; R65.21 Severe sepsis with septic shock; R57.1 Hypovolemic shock; N17.9 Acute kidney failure, unspecified; E87.1 Hypo-osmolality and hyponatremia; J98.11 Atelectasis; K90.9 Intestinal malabsorption, unspecified; C18.2 Malignant neoplasm of ascending colon; K52.9 Noninfective gastroenteritis and colitis, unspecified; Z20.822 Contact with and (suspected) exposure to COVID-19; K29.80 Duodenitis without bleeding; I10 Essential (primary) hypertension; G47.00 Insomnia, unspecified; G62.9 Polyneuropathy, unspecified; N40.0 Benign prostatic hyperplasia without lower urinary tract symptoms; I25.10 Atherosclerotic heart disease of native coronary artery without angina pectoris; F03.90 Unspecified dementia, unspecified severity, without behavioral disturbance, psychotic disturbance, mood disturbance, and anxiety; E87.6 Hypokalemia; K59.00 Constipation, unspecified; E03.9 Hypothyroidism, unspecified; I48.91 Unspecified atrial fibrillation; B35.6 Tinea cruris; E83.39 Other disorders of phosphorus metabolism; D64.9 Anemia, unspecified; Z90.49 Acquired absence of other specified parts of digestive tract; Z88.8 Allergy status to other drugs, medicaments and biological substances; Z88.2 Allergy status to sulfonamides; Z79.899 Other long term (current) drug therapy; Z79.82 Long term (current) use of aspirin; Z79.890 Hormone replacement therapy; Z87.891 Personal history of nicotine dependence; Z80.3 Family history of malignant neoplasm of breast
CPT/HCPCS: 36415; 36556; 71045; 74018; 74174; 74177; 80048; 80053; 81001; 82553; 83605; 83630; 83690; 83735; 84100; 84132; 84484; 85025; 85027; 87040; 87086; 87324; 87449; 87505; 93005; 94640; 94760; 96374; 96375; J0696; J1650; J2270; J2405; J3475; J3480; J3490; J7120; J7620; Q9967; S0028; U0002